=== PATIENT | female | born 1985 | race Caucasian/White ===

== ENCOUNTER 2016-12-12 18:08 | Emergency (ER) | payer OTHER ==
[~2016-12-12] VITALS: Ht 157.5 cm; Wt 60.5 kg
[~2016-12-12 18:08] MED LIST: CIPR500T4 PO; NITR-58 PO; PHEN-537 PO; PHEN-538 PO
[2016-12-12 18:43] VITALS: Ht 157.5 cm; Wt 60.5 kg
[2016-12-12] MEDS ORDERED: FAMOTIDINE 20 MG TAB PO ONE (22:00)
[2016-12-12] MEDS ORDERED: LIDOCAINE/MYLANTA 40 ML BTL PO ONE (22:00)
[2016-12-12] MEDS ORDERED: RANI150T9 PO (23:00)
[2016-12-12 23:04] VITALS: BP 110/60; RESP 20; TEMP 98
--- NOTE | 2016-12-13 00:16 | ERD ---
ER Documentation Chief Complaint Date/Time DATE: 12/13/16 TIME: 00:12 Chief Complaint epigastric pain with n/v increases with spicy food HPI 31-year-old female patient with no significant past medical history presents to the ED complaining of epigastric pain with nausea and vomiting that started after eating spicy food especially jalapenos. Reports that has been going on intermittently for 1 month. Denies any nausea, vomiting, diarrhea. Reports that she has normal daily bowel movements. States that she is currently on her menstruation. Denies any smoking or usage of drugs. ROS All systems reviewed and are negative except as per history of present illness. Medications Home Meds Active Scripts Ranitidine Hcl* (Zantac*) 150 Mg Tablet, 150 MG PO BID Y for EPIGASTRIC PAIN, # 30 TAB Prov:ANUSHA JIMENEZ PA-C 12/12/16 Ciprofloxacin Hcl* (Ciprofloxacin Hcl*) 500 Mg Tablet, 500 MG PO BID for 5 Days , TAB Prov:JOSE GLASS PA-C 08/29/15 Phenazopyridine Hcl* (Pyridium*) 100 Mg Tab, 100 MG PO TID Y for URINARY PAIN, # 8 TAB Prov:JSOE GLASS PA-C 08/29/15 Phenazopyridine Hcl* (Pyridium*) 200 Mg Tab, 200 MG PO TID Y for burning with urination, #6 TAB Prov:SACHI BLUNT DO 06/30/15 Ciprofloxacin Hcl* (Ciprofloxacin Hcl*) 500 Mg Tablet, 500 MG PO BID for 3 Days , TAB Prov:SACHI BLUNT DO 06/30/15 Nitrofurantoin Monohyd Macrocr* (Macrobid*) 100 Mg Capsr, 100 MG PO BID for 7 Days, CAP Prov:PAT HERNANDEZ 12/15/14 Allergies Allergies: Coded Allergies: No Known Allergies (Verified Allergy, Mild, 08/29/15) PMhx/Soc History of Surgery: Yes () Anesthesia Reaction: No Hx Neurological Disorder: No Hx Respiratory Disorders: No Hx Cardiac Disorders: No Hx Psychiatric Problems: No Hx Miscellaneous Medical Probl: Yes (UTIs) Hx Alcohol Use: No Hx Substance Use: No Hx Tobacco Use: No Smoking Status: Never smoker Physical Exam Vitals Vital Signs Date Time Temp Pulse Resp B/P Pulse Ox O2 Delivery O2 Flow Rate FiO2 12/12/16 23:04 98.0 20 110/60 100 Room Air 12/12/16 18:43 99.0 82 18 105/70 99 Physical Exam Const: [id number], well-nourished. In no acute distress. Head: Atraumatic, normocephalic Eyes: Normal Conjunctiva without injection. No purulent discharge. ENT: Normal external ear, nose. Moist oropharynx without tonsillar exudates. Non -erythematous pharynx. Uvula midline. No drooling. No trismus. Neck: No cervical midline tenderness. Full range of motion. No meningismus. No cervical lymphadenopathy. No JVD. Resp: Clear to auscultation bilaterally. No wheezing, rhonchi, rales, or crackles. No accessory muscle use. No retractions. Cardio: Regular rate and rhythm. No murmurs, rubs or gallops. Abd: Soft, tenderness to palpation of epigastric region, non distended. Normal bowel sounds. No palpable masses. No rebound tenderness. No guarding. Negative McBurney's point. Negative psoas sign. Negative obturator sign. Skin: No petechiae or rashes Back: No midline tenderness. No CVA tenderness. Ext: No cyanosis, or edema. Neur: Awake and alert. Normal gait. Normal coordination. Psych: Normal Mood and Affect Results 24 hrs Current Medications Medications (Trade) Dose Ordered Sig/Maddy Route PRN Reason Start Time Stop Time Status Last Admin Dose Admin Miscellaneous Medication (Gi Cocktail (2)) 40 ml ONCE ONCE PO 12/12/16 22:00 12/12/16 22:01 DC 12/12/16 21:44 Famotidine (Pepcid) 20 mg ONCE ONCE PO 12/12/16 22:00 12/12/16 22:01 DC 12/12/16 21:44 Procedures/MDM 31-year-old female patient with no significant past medical history presents to the ED complaining of epigastric pain associated with nausea vomiting after eating spicy - jalapenos. Patient is afebrile nontoxic appearing. Patient has normal vital signs. Differentials include to follow-up with a chief clinical dietitian for further evaluation with an endoscopy. Patient was given GI cocktail and famotidine with improvement of her symptoms. Differentials include GERD versus gastritis. Negative . Low suspicion for ectopic , ovarian torsion, gastritis, GERD, peptic ulcer disease, cholecystitis , choledocholithiasis, cholangitis, pancreatitis, appendicitis, bowel obstruction, ileus, volvulus, nephrolithiasis, pyelonephritis, hepatitis, perforated viscus, diverticulitis, strangulated/incarcerated hernia, DKA, acute abdomen, mesenteric ischemia or other emergent conditions. Discharge medications: Ranitidine Follow up with primary care physician in 1-2 days for referral to chief clinical dietitian. Instructed patient to return to the ED sooner for any worsening symptoms. Patient's questions were answered. Patient understood and agreed with discharge plan. Patient discharged stable. Departure Diagnosis: Primary Impression: GERD (gastroesophageal reflux disease) Esophagitis presence: with esophagitis Qualified Code: K21.0 - Gastroesophageal reflux disease with esophagitis Condition: Stable Patient Instructions: Gerd (Adult), Gastritis Vs. Ulcer Referrals: GLORIA CAMPBELL MD (PCP) [facility] YOU HAVE RECEIVED A MEDICAL SCREENING EXAM AND THE RESULTS INDICATE THAT YOU DO NOT HAVE A CONDITION THAT REQUIRES URGENT TREATMENT IN THE EMERGENCY DEPARTMENT. FURTHER EVALUATION AND TREATMENT OF YOUR CONDITION CAN WAIT UNTIL YOU ARE SEEN IN YOUR DOCTORS OFFICE WITHIN THE NEXT 1-2 DAYS. IT IS YOUR RESPONSIBILITY TO MAKE AN APPOINTMENT FOR FOLOW-UP CARE. IF YOU HAVE A PRIMARY DOCTOR --you should call your primary doctor and schedule an appointment IF YOU DO NOT HAVE A PRIMARY DOCTOR YOU CAN CALL OUR PHYSICIAN REFERRAL HOTLINE AT IF YOU CAN NOT AFFORD TO SEE A PHYSICIAN YOU CAN CHOSE FROM THE FOLLOWING [facility] CLINICS [facility] [address] [facility]. [facility] [address] [facility] [place] [address] [facility] [address] [facility]. [facility] [address] [facility]. [facility]. [address] [facility] YOU HAVE RECEIVED A MEDICAL SCREENING EXAM AND THE RESULTS INDICATE THAT YOU DO NOT HAVE A CONDITION THAT REQUIRES URGENT TREATMENT IN THE EMERGENCY DEPARTMENT. FURTHER EVALUATION AND TREATMENT OF YOUR CONDITION CAN WAIT UNTIL YOU ARE SEEN IN YOUR DOCTORS OFFICE WITHIN THE NEXT 1-2 DAYS. IT IS YOUR RESPONSIBILITY TO MAKE AN APPOINTMENT FOR FOLOW-UP CARE. IF YOU HAVE A PRIMARY DOCTOR --you should call your primary doctor and schedule and appointment IF YOU DO NOT HAVE A PRIMARY DOCTOR YOU CAN CALL OUR PHYSICIAN REFERRAL HOTLINE AT . IF YOU CAN NOT AFFORD TO SEE A PHYSICIAN YOU CAN CHOSE FROM THE FOLLOWING [facility] INSTITUTIONS: [facility] [address] [place] [address] [facility] [address] [place] [address] [facility] [address] [place] [address] [facility] Additional Instructions: Call your primary care doctor TOMORROW for an appointment during the next 2-3 days for a referral to see a chief clinical dietitian. See the doctor sooner or return here if your condition worsens before your appointment time. ANUSHA JIMENEZ PA-C Dec 13, 2016 00:16 ANUSHA JIMENEZ PA-C Dec 13, 2016 00:16
== END 2016-12-12 23:06 | disposition home or self-care (01) ==
LOC: FTE 18:08
DX: K21.0 Gastro-esophageal reflux disease with esophagitis (principal)
CPT/HCPCS: Z7502; Z7610; 99283